=== PATIENT | female | born 1985 | race Caucasian/White ===

== ENCOUNTER → 2016-07-19 | Outpatient (CLI) | payer OTHER ==
[2016-07-19 12:44] LABS: CH 30.2; CHCM 33.4; HCT 40.9 % (34.0-46.0); HDW 2.24; HGB 13.4 gm/dL (11.4-16.0); MCH 29.6 pg (25.0-35.0); MCHC 32.7 g/dL (31.0-37.0); MCV 90.6 fL (80.0-100.0); Mean Platelet Volume 7.2; RBC 4.51 m/uL (3.80-5.40); RDW 12.6 % (11.5-15.5)
[2016-07-19 13:04] LABS: Glucose 89 mg/dL (74-99); Non-African American GFR(MDRD) >60 (>60 ml/min/1.73 sqM)
[2016-07-19 13:35] LABS: Hepatitis B Surface Ag Index 0.05
--- NOTE | 2016-07-19 13:52 | US ---
EXAMINATION TYPE: US OB <= 14 wk fetus DATE OF EXAM: 07/19/2016 11:38 AM COMPARISON: NONE CLINICAL HISTORY: Z36 Confirm dates. EXAM PERFORMED: <14 week OB EXAM MEASUREMENTS: GESTATIONAL AGE / DATING Physician Established: (10 weeks/2 days) EDC: 02/12/2017 Dates by LMP: (10 weeks/2 days) EDC: 02/12/2017 Dates by First Scan: No Previous Dates by Current Scan for: (10 weeks/1 days) EDC: 02/13/2017 MATERNAL ANATOMY Uterus: 11.2 x 10.2 x 9.6 cm Right Ovary: 2.9 x 2.5 x 2.0 cm Left Ovary: 2.8 x 2.7 x 1.7 cm Post CDS / Adnexa: wnl Presence of free fluid: no Presence of corpus luteal cyst: no Presence of subchorionic bleed: yes, to right side = 1.3 x 1.1 x 1.0 cm GESTATION / SURVEY CRL: 2.8 cm (9 weeks/4 days) MSD: 4.7 cm (10 weeks/4 days) Yolk Sac (normal less than 6mm): 0.4 cm Heart Rate: 170 bpm Rhythm: normal IUP: yes Date of LMP: 05/08/2016 TECHNOLOGIST IMPRESSION: IMPRESSION: 1. Single intrauterine gestation estimated at 10 weeks 1 day gestation on the current ultrasound. Thi s would have an EDC of 02/13/2017. 2. Cardiac activity measures 170 bpm.
[2016-07-20 07:05] LABS: HIV-1/HIV-2 Ab Screen NONREAC (NON REAC)
== END | disposition home or self-care (01) ==
LOC: RADUSWWP 11:09
PROVIDERS: ATTEND Obstetrics & Gynecology
DX: Z36 Encounter for antenatal screening of mother (principal); O26.819 Pregnancy related exhaustion and fatigue, unspecified trimester; Z3A.10 10 weeks gestation of pregnancy
CPT/HCPCS: 76801; 82565; 82947; 85027; 86762; 86780; 86850; 86900; 86901; 87340; 87389

== ENCOUNTER → 2016-09-20 | Outpatient (CLI) | payer OTHER ==
--- NOTE | 2016-09-20 14:47 | US ---
EXAMINATION TYPE: US OB anatomy transabd DATE OF EXAM: 09/20/2016 1:14 PM COMPARISON: NONE HISTORY: Large [id number] Small for dates TECHNIQUE: OBTA EXAM MEASUREMENTS: GESTATIONAL AGE / DATING Physician Established: (19 weeks/2 days) EDC: 02/12/2017 Dates by LMP: (1 9 weeks/2 days) EDC: 02/12/2017 Dates by First Scan: (19 weeks/1 days) EDC: 02/13/2017 Dates by Current Scan for: (18 weeks/3 days) EDC: 02/18/2017 SURVEY IUP: Single PLACENTA: Posterior PREVIA: No previa TONIA: 16.1 cm Normal CERVICAL LENGTH (transabdominal: norm > 3.0cm): 3.2 cm BIOMETRY PRESENTATION: Variable BPD: 4.1 cm 18 weeks / 4 days HC: 15.0 cm 18 weeks / 1 days AC: 12.6 cm 18 weeks / 2 days FL: 2.8 cm 18 weeks / 4 days ESTIMATED WEIGHT IN GRAMS: 236 grams ESTIMATED WEIGHT IN LBS/OZS: 0 lbs. 8 oz. WEIGHT PERCENTAGE BASED ON ESTABLISHED DATE: 8 % HC/AC: 1.1 Normal FL/AC: 22 Normal HEART RATE: 152 bpm RHYTHM: Normal ANATOMY SEEN (within normal limits): * Lateral Vent (< 1 cm) 0.6 cm * Cisterna Magna (< 1.1 cm) 0.3 cm * Nuchal Fold (< 0.6 cm) 0.3 cm * Cerebellum (varies with age) 1.8 cm Choroid Plexus (bilateral) Midline Falx Cavus Septi Pellucidi Four Chamber Heart Outflow tracts: LVOT/RVOT Stomach Situs Nose / Lips Diaphragm Kidneys (bilateral) Bladder Cord Insert Three Vessel Cord Longitudinal Spine Transverse Spine Arms (bilateral) Legs (bilateral) Viable 18w3d fetus seen and appears wnl IMPRESSION: 1. Single intrauterine gestation estimated at 18 weeks 3 days gestation based on current ultrasound m easurements. This is cardiac activity measures 152 bpm.
== END | disposition home or self-care (01) ==
LOC: RADUSWWP 11:13
PROVIDERS: ATTEND Obstetrics & Gynecology
DX: O36.5920 Maternal care for other known or suspected poor fetal growth, second trimester, not applicable or unspecified (principal); Z3A.18 18 weeks gestation of pregnancy
CPT/HCPCS: 76811

== ENCOUNTER → 2016-11-02 | Outpatient (CLI) | payer OTHER ==
[2016-11-02 11:47] LABS: CH 30.5; CHCM 33.1; HCT 35.9 % (34.0-46.0); HDW 2.46; HGB 11.5 gm/dL (11.4-16.0); MCH 29.8 pg (25.0-35.0); MCHC 32.1 g/dL (31.0-37.0); MCV 92.7 fL (80.0-100.0); Mean Platelet Volume 6.8; RBC 3.87 m/uL (3.80-5.40); RDW 13.5 % (11.5-15.5)
== END | disposition home or self-care (01) ==
LOC: LABWHC1 10:25
PROVIDERS: ATTEND Obstetrics & Gynecology
DX: Z34.92 Encounter for supervision of normal pregnancy, unspecified, second trimester (principal); Z3A.00 Weeks of gestation of pregnancy not specified
CPT/HCPCS: 36415; 82950; 85027

== ENCOUNTER 2016-11-06 15:52 | Emergency (ER) | payer OTHER ==
[2016-11-06 16:00] VITALS: BP 133/81; PULSE 102; RESP 16; TEMP 98.3
--- NOTE | 2016-11-06 16:30 | ED ---
Recheck HPI - General Chief Complaint: Recheck/Abnormal Lab/Rx Stated Complaint: Cough Time Seen by Provider: 11/06/16 16:16 Source: patient, RN notes reviewed Mode of arrival: ambulatory Limitations: no limitations - History of Present Illness Initial Comments: 31-year-old female presents to the emergency Department chief complaint of concern for worms. Patient states that they got a puppy and the puppy is having worsening take stool. Patient stated that and they told her to go to the emergency room in the evaluated. Patient states she's not having a symptom she's not having anal itching. She did not notice any worms in her stool. Patient denies any recent fever, chills, shortness of breath, chest pain, back pain, abdominal pain, nausea vomiting, numbness or tingling, dysuria or hematuria, constipation or diarrhea, headaches or visual changes, or any other current symptoms. - Related Data Previous Rx's Medication Instructions Recorded Acetaminophen-Codeine 300-30mg 1 each PO Q4HR PRN #30 tab 11/14/15 [Tylenol w/codeine #3] Ibuprofen [Motrin] 600 mg PO Q6HR PRN #60 tab 11/14/15 Allergies Allergy/AdvReac Type Severity Reaction Status Date / Time morphine Allergy Rash/Hives Verified 11/06/16 15:59 Review of Systems ROS Statement: Those systems with pertinent positive or pertinent negative responses have been documented in the HPI. ROS Other: All systems not noted in ROS Statement are negative. Past Medical History Past Medical History: No Reported History Additional Past Medical History / Comment(s): History of vesicoureteral reflux with resulting kidney disease status post bilateral ureteral implants in the past. History of Any Multi-Drug Resistant Organisms: None Reported Past Surgical History: Tonsillectomy Additional Past Surgical History / Comment(s): Bilateral ureteral stents. uti Past Anesthesia/Blood Transfusion Reactions: No Reported Reaction Past Psychological History: Depression Additional Psychological History / Comment(s): hx of with meds in past but not ppd Smoking Status: Current every day smoker Past Alcohol Use History: None Reported Past Drug Use History: None Reported - Past Family History Father Family Medical History: No Reported History General Exam Limitations: no limitations General appearance: alert, in no apparent distress Head exam: Present: atraumatic, normocephalic, normal inspection Respiratory exam: Absent: respiratory distress Cardiovascular Exam: Present: regular rate Back exam: Present: normal inspection Neurological exam: Present: alert, oriented X3 Psychiatric exam: Present: normal affect, normal mood Skin exam: Present: warm, dry, intact, normal color. Absent: rash Course Vital Signs 11/06/16 15:55 Temperature 98.3 F Pulse Rate 102 H Respiratory 16 Rate Blood Pressure 133/81 O2 Sat by Pulse 97 Oximetry Medical Decision Making - Medical Decision Making 31-year-old female presents emergency department with a chief complaint of concern for possible exposure to lungs. This patient was offered a pinworm test that she states she does not have this. Patient states she is not getting the words she has not been doing anything abnormal about the arms. Patient states that she would just like to go home. She states she sees her doctor tomorrow and she will address this issue with him. The patient states that she understood and she is in agreement with the plan. She will be discharged home. Disposition Clinical Impression: Concern about digestive disease without diagnosis Disposition: HOME SELF-CARE Condition: Stable Instructions: Acute Diarrhea in Children (ED) Additional Instructions: Please follow up with family doctor if symptoms have not improved over the next two days. Please return to the emergency room if your symptoms increase or worsen or for any other concerns. Referrals: Earlene Hobson MD [STAFF PHYSICIAN] - 1-2 days Time of Disposition: 16:30
== END 2016-11-06 17:00 | disposition home or self-care (01) ==
LOC: EC 15:52
DX: R05 Cough (principal); F17.200 Nicotine dependence, unspecified, uncomplicated; Z88.5 Allergy status to narcotic agent
CPT/HCPCS: 99282

== ENCOUNTER 2016-11-22 15:39 | Outpatient (CLI) | payer OTHER ==
[2016-11-22 16:02] LABS: Appearance,Urine Cloudy (Clear); Bacteria,Urine Occasional /hpf; Bilirubin,Urine Negative (Negative); Glucose,Urine (UA) Negative (Negative); Ketones,Urine Negative (Negative); Leukocyte Esterase,Urine Large (Negative); Mucus,Urine Occasional /hpf; Nitrite,Urine Positive (Negative); PH, Urine 6.5 (5.0-8.0); Particle Count 51647; Protein,Urine Trace (Negative); RBC,Urine 1 /hpf (0-5); Squamous Epithelial Cell,Urine 5 /hpf (0-4); UA Billing (MACRO vs. MICRO) MICRO; Urobilinogen,Urine <2.0 mg/dL (<2.0); WBC,Urine 33 /hpf (0-5)
[2016-11-22] MEDS ORDERED: ceFAZolin 2 GM in SODIUM CHLORIDE 0.9% 100 ML IVPB STA (16:25)
[2016-11-22] MEDS ORDERED: BETAMET ACET-BETAMETH SOD PHOS 6 MG/ML VIAL IM SCH (16:30)
[2016-11-22] MEDS ORDERED: LACTATED RINGERS 1,000 ML IV SCH (16:30)
[2016-11-22 16:52] LABS: Basophils # (A) 0.1 k/uL (0-0.2); Basophils % (A) 0 %; CH 30.5; CHCM 34.4; Eosinophils # (A) 0.2 k/uL (0-0.7); Eosinophils % (A) 1 %; HCT 34.8 % (34.0-46.0); HDW 2.63; HGB 12.1 gm/dL (11.4-16.0); Luc # (Auto) 0.23; Luc % (Auto) 1; Lymphocytes # (A) 2.3 k/uL (1.0-4.8); Lymphocytes % (A) 12 %; MCH 31.1 pg (25.0-35.0); MCHC 34.9 g/dL (31.0-37.0); MCV 89.3 fL (80.0-100.0); Mean Platelet Volume 7.3; Monocytes # (A) 0.6 k/uL (0-1.0); Monocytes % (A) 3 %; Neutrophils # (A) 15.8 k/uL (1.3-7.7); Neutrophils % (A) 82 %; RDW 13.6 % (11.5-15.5); WBC 19.3 k/uL (3.8-10.6); WBC (Perox) 20.41
[2016-11-22] MEDS ORDERED: CALCIUM GLUCONATE 100 MG/ML 10 ML VIAL IV ONE (17:21)
[2016-11-22] MEDS ORDERED: MAGNESIUM SULFATE-WATER PMX 4 GM in WATER FOR INJECTION 50 50ML.BAG IVPB ONE (17:21)
[2016-11-22] MEDS ORDERED: MAGNESIUM SULFATE-WATER PMX 20 GM in WATER FOR INJECTION 1 500ML.BAG IV SCH (17:30)
--- NOTE | 2016-11-22 17:31 | P.HPOB ---
History of Present Illness H&P Date: 11/22/16 Chief Complaint: Left lower back pain This is a 31-year-old female 5 para 4 with an estimated date of confinement of 02/12/2017, estimated gestational age of 28-2/7 weeks, who presented to labor and delivery triage complaining of left pain that worsened today. She has been feeling back pain off and on for quite some time now but it did get stronger today. She does have a history of kidney problems and therefore was concerned that she might have a bladder infection. Her has been with Dr. Pickett and has been uncomplicated up until this point. All of her lab tests have been normal. In triage she was noted to have some contractions on the monitor even though she was not feeling contractions. She was checked and found to be 3-1/2 cm by nursing staff shortly after arrival. The patient states her 1 child was born at 37 weeks and she was feeling the same kind of back pain at that time and was not feeling strong contractions arrived to 8 cm. Review of Systems Constitutional: Denies chills, Denies fever Cardiovascular: Denies chest pain, Denies shortness of breath Respiratory: Denies cough Gastrointestinal: Denies abdominal pain Genitourinary: Reports , Denies urgency Musculoskeletal: Reports low back pain Psychiatric: Reports anxiety, Reports depression Past Medical History Past Medical History: No Reported History Additional Past Medical History / Comment(s): History of vesicoureteral reflux with resulting kidney disease status post bilateral ureteral implants in the past. History of Any Multi-Drug Resistant Organisms: None Reported Past Surgical History: Tonsillectomy Additional Past Surgical History / Comment(s): Bilateral ureteral stents. uti Past Anesthesia/Blood Transfusion Reactions: No Reported Reaction Past Psychological History: Depression Additional Psychological History / Comment(s): hx of with meds in past but not ppd Smoking Status: Current every day smoker Past Alcohol Use History: None Reported Past Drug Use History: None Reported - Past Family History Father Family Medical History: No Reported History Medications and Allergies Home Medications Medication Instructions Recorded Confirmed Type Acetaminophen Tab [Tylenol Tab] 1,000 mg PO Q6HR PRN 11/06/16 11/22/16 History Allergies Allergy/AdvReac Type Severity Reaction Status Date / Time morphine Allergy Rash/Hives Verified 11/22/16 15:50 Exam Osteopathic Statement: *. No significant issues noted on an osteopathic structural exam other than those noted in the History and Physical/Consult. - Vital Signs Vital signs: Intake and Output 11/22/16 11/22/16 11/22/16 06:59 14:59 22:59 Other: Weight 65.771 kg Patient Weight 11/23/16 06:59 Weight 65.771 kg HEENT: Within normal limits Heart: Regular rate and rhythm Lungs: Clear to auscultation bilaterally Abdomen: Soft, nontender Back: Mild tenderness along her left sacroiliac joint Extremities: Negative Homans Cervix exam 3-1/2 cm/60%/ballotable, no presenting part palpable heart tones: Normal variability with accelerations and no decelerations Contractions: Every 2-7 minutes, irregular Results Result Diagrams: 11/22/16 16:37 Abnormal Lab Results - Last 24 Hours (Table) 11/22/16 11/22/16 Range/Units 15:50 16:37 WBC 19.3 H (3.8-10.6) k/uL Neutrophils # 15.8 H (1.3-7.7) k/uL Urine Appearance Cloudy H (Clear) Urine Protein Trace H (Negative) Urine Blood Trace H (Negative) Urine Nitrite Positive H (Negative) Ur Leukocyte Esterase Large H (Negative) Urine WBC 33 H (0-5) /hpf Ur Squamous Epith Cells 5 H (0-4) /hpf Urine Bacteria Occasional H (None) /hpf Urine Mucus Occasional H (None) /hpf Assessment and Plan (1) 28 weeks gestation of Status: Acute (2) labor Status: Acute (3) Urinary tract infection Status: Acute Plan: Spoke with Dr. Canales at [facility] who accepted transfer. Will start magnesium sulfate tocolysis for transfer. She has received 1 dose of Celestone here and IV Kefzol for her urinary tract infection. Patient and her mother are advised of the recommendations and agreed to transfer. She will be transferred by ambulance.
[2016-11-22 18:38] VITALS: BP 116/59; PULSE 86; RESP 17; TEMP 96.9
== END 2016-11-22 18:00 | disposition home or self-care (01) ==
LOC: FBPOP 15:39
PROVIDERS: ATTEND Obstetrics & Gynecology
DX: O60.03 Preterm labor without delivery, third trimester (principal); O23.43 Unspecified infection of urinary tract in pregnancy, third trimester; Z3A.28 28 weeks gestation of pregnancy
CPT/HCPCS: 59025; 96361; 96365; 85025; 81001; G0463; J0702; J3475 ×2; J0690; 51702; 99215

== ENCOUNTER 2019-12-19 09:06 | Emergency (ER) | payer BC, OTHER ==
[2019-12-19 09:14] VITALS: TEMP 98.1
--- NOTE | 2019-12-19 09:26 | ED ---
General Adult HPI - General Chief complaint: Abdominal Pain Stated complaint: Pelvic pain Time Seen by Provider: 12/19/19 09:15 Source: patient Mode of arrival: ambulatory Limitations: no limitations - History of Present Illness Initial comments: Dictation was produced using [employer] dictation software. please excuse any grammatical, word or spelling errors. This patient was cared for during a federal and state declared state of emergency secondary to Covid 19 Chief Complaint: 34-year-old female with renal dysfunction, frequent UTIs presents with pelvic pain. History of Present Illness: Patient's 34-year-old female. 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 Patient's history of multiple UTIs. States that she has suprapubic pain that spent ongoing for proximally 7 days. She does have urinary hesitancy. She denies any chance of having a sexually transmitted disease. Denies any fever, chills or night sweats. States the pain is midline. She also does report having history of ovarian cysts. States that the pain has been progressive. Denies any vaginal discharge vaginal bleeding. She denies being because her had a vasectomy. She is sexually active with only one partner. The ROS documented in this emergency department record has been reviewed and confirmed by me. Those systems with pertinent positive or negative responses have been documented in the HPI. All other systems are other negative and/or noncontributory. PHYSICAL EXAM: General Impression: Alert and oriented x3, not in acute distress HEENT: Normocephalic atraumatic, extra-ocular movements intact, pupils equal and reactive to light bilaterally, mucous membranes moist. Cardiovascular: Heart regular rate and rhythm Chest: Able to complete full sentences, no retractions, no tachypnea Abdomen: abdomen soft, mild tenderness to the bilateral suprapubic regions Musculoskeletal: Pulses present and equal in all extremities, no peripheral edema, no CVA tenderness Motor: no focal deficits noted Neurological: CN II-XII grossly intact, no focal motor or sensory deficits noted Skin: Intact with no visualized rashes Psych: Normal affect and mood ED course: 34 y Old female presents with suprapubic pain and urinary symptoms. All signs upon arrival are within acceptable limits. Laboratory evaluation obtained. CBC, metabolic panel is unremarkable. Urina lysis does not suggest urinary tract infection. Patient well-appearing at bedside. Patient offered pelvic exam however refuse. No further tests or studies indicated at this time. Patient requested workup noted to have today and tomorrow off. Patient given a work note. 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 - Related Data Home Medications Medication Instructions Recorded Confirmed No Known Home Medications 12/19/19 12/19/19 Allergies Allergy/AdvReac Type Severity Reaction Status Date / Time morphine Allergy Rash/Hives Verified 12/19/19 10:15 Review of Systems ROS Statement: Those systems with pertinent positive or pertinent negative responses have been documented in the HPI. ROS Other: All systems not noted in ROS Statement are negative. Past Medical History Past Medical History: No Reported History Additional Past Medical History / Comment(s): History of vesicoureteral reflux with resulting kidney disease status post bilateral ureteral implants in the past. History of Any Multi-Drug Resistant Organisms: None Reported Past Surgical History: Tonsillectomy Additional Past Surgical History / Comment(s): Bilateral ureteral stents. uti Past Anesthesia/Blood Transfusion Reactions: No Reported Reaction Past Psychological History: No Psychological Hx Reported, Depression Smoking Status: Current every day smoker Past Alcohol Use History: None Reported Past Drug Use History: Marijuana - Past Family History Father Family Medical History: No Reported History General Exam Limitations: no limitations Course Vital Signs 12/19/19 12/19/19 09:10 09:42 Temperature 98.1 F 98.1 F Pulse Rate 93 82 Respiratory 18 16 Rate Blood Pressure 144/81 134/97 O2 Sat by Pulse 99 100 Oximetry Medical Decision Making - Lab Data Result diagrams: 12/19/19 09:37 12/19/19 09:37 Lab Results 12/19/19 12/19/19 12/19/19 Range/Units 09:37 09:37 09:37 WBC 9.5 (3.8-10.6) k/uL RBC 4.74 (3.80-5.40) m/uL Hgb 13.9 (11.4-16.0) gm/dL Hct 43.6 (34.0-46.0) % MCV 91.9 (80.0-100.0) fL MCH 29.2 (25.0-35.0) pg MCHC 31.8 (31.0-37.0) g/dL RDW 12.7 (11.5-15.5) % Plt Count 319 (150-450) k/uL Neutrophils % 65 % Lymphocytes % 26 % Monocytes % 5 % Eosinophils % 3 % Basophils % 1 % Neutrophils # 6.2 (1.3-7.7) k/uL Lymphocytes # 2.4 (1.0-4.8) k/uL Monocytes # 0.4 (0-1.0) k/uL Eosinophils # 0.3 (0-0.7) k/uL Basophils # 0.1 (0-0.2) k/uL Sodium (137-145) mmol/L Potassium (3.5-5.1) mmol/L Chloride (98-107) mmol/L Carbon Dioxide (22-30) mmol/L Anion Gap mmol/L BUN (7-17) mg/dL Creatinine (0.52-1.04) mg/dL Est GFR (CKD-EPI)AfAm (>60 ml/min/1.73 sqM) Est GFR (CKD-EPI)NonAf (>60 ml/min/1.73 sqM) Glucose (74-99) mg/dL Calcium (8.4-10.2) mg/dL Urine Color Yellow Urine Appearance Cloudy H (Clear) Urine pH 6.0 (5.0-8.0) Ur Specific [place] 1.026 (1.001-1.035) Urine Protein Trace H (Negative) Urine Glucose (UA) Negative (Negative) Urine Ketones Negative (Negative) Urine Blood Negative (Negative) Urine Nitrite Negative (Negative) Urine Bilirubin Negative (Negative) Urine Urobilinogen <2.0 (<2.0) mg/dL Ur Leukocyte Esterase Negative (Negative) Urine RBC 1 (0-5) /hpf Urine WBC 3 (0-5) /hpf Ur Squamous Epith Cells 9 H (0-4) /hpf Urine Bacteria Rare H (None) /hpf Hyaline Casts 3 H (0-2) /lpf Urine Mucus Many H (None) /hpf Urine HCG, Qual Not Detected (Not Detectd) 12/19/19 Range/Units 09:37 WBC (3.8-10.6) k/uL RBC (3.80-5.40) m/uL Hgb (11.4-16.0) gm/dL Hct (34.0-46.0) % MCV (80.0-100.0) fL MCH (25.0-35.0) pg MCHC (31.0-37.0) g/dL RDW (11.5-15.5) % Plt Count (150-450) k/uL Neutrophils % % Lymphocytes % % Monocytes % % Eosinophils % % Basophils % % Neutrophils # (1.3-7.7) k/uL Lymphocytes # (1.0-4.8) k/uL Monocytes # (0-1.0) k/uL Eosinophils # (0-0.7) k/uL Basophils # (0-0.2) k/uL Sodium 139 (137-145) mmol/L Potassium 4.4 (3.5-5.1) mmol/L Chloride 108 H (98-107) mmol/L Carbon Dioxide 23 (22-30) mmol/L Anion Gap 8 mmol/L BUN 14 (7-17) mg/dL Creatinine 0.59 (0.52-1.04) mg/dL Est GFR (CKD-EPI)AfAm >90 (>60 ml/min/1.73 sqM) Est GFR (CKD-EPI)NonAf >90 (>60 ml/min/1.73 sqM) Glucose 93 (74-99) mg/dL Calcium 9.6 (8.4-10.2) mg/dL Urine Color Urine Appearance (Clear) Urine pH (5.0-8.0) Ur Specific [place] (1.001-1.035) Urine Protein (Negative) Urine Glucose (UA) (Negative) Urine Ketones (Negative) Urine Blood (Negative) Urine Nitrite (Negative) Urine Bilirubin (Negative) Urine Urobilinogen (<2.0) mg/dL Ur Leukocyte Esterase (Negative) Urine RBC (0-5) /hpf Urine WBC (0-5) /hpf Ur Squamous Epith Cells (0-4) /hpf Urine Bacteria (None) /hpf Hyaline Casts (0-2) /lpf Urine Mucus (None) /hpf Urine HCG, Qual (Not Detectd) Disposition Clinical Impression: Pelvic pain Disposition: HOME SELF-CARE Condition: Good Instructions (If sedation given, give patient instructions): Pelvic Pain in Women (ED) Is patient prescribed a controlled substance at d/c from ED?: No Referrals: None,Stated [Primary Care Provider] - 1-2 days Time of Disposition: 10:16
[2019-12-19 09:45] VITALS: BP 134/97; PULSE 82; RESP 16
[2019-12-19 09:49] LABS: Basophils # (A) 0.1 k/uL (0-0.2); Basophils % (A) 1 %; Eosinophils # (A) 0.3 k/uL (0-0.7); Eosinophils % (A) 3 %; HCT 43.6 % (34.0-46.0); HGB 13.9 gm/dL (11.4-16.0); Lymphocytes # (A) 2.4 k/uL (1.0-4.8); Lymphocytes % (A) 26 %; MCH 29.2 pg (25.0-35.0); MCHC 31.8 g/dL (31.0-37.0); MCV 91.9 fL (80.0-100.0); Mean Platelet Volume 7.1; Monocytes # (A) 0.4 k/uL (0-1.0); Monocytes % (A) 5 %; Neutrophils # (A) 6.2 k/uL (1.3-7.7); Neutrophils % (A) 65 %; Platelet Count 319 k/uL (150-450); RBC 4.74 m/uL (3.80-5.40); RDW 12.7 % (11.5-15.5); WBC 9.5 k/uL (3.8-10.6)
[2019-12-19 09:53] LABS: Appearance,Urine Cloudy (Clear); Bacteria,Urine Rare /hpf; Bilirubin,Urine Negative (Negative); Blood,Urine Negative (Negative); Color,Urine Yellow; Glucose,Urine (UA) Negative (Negative); Hyaline Casts,Urine 3 /lpf (0-2); Ketones,Urine Negative (Negative); Leukocyte Esterase,Urine Negative (Negative); Mucus,Urine Many /hpf; Nitrite,Urine Negative (Negative); Protein,Urine Trace (Negative); RBC,Urine 1 /hpf (0-5); Specific Gravity,Urine 1.026 (1.001-1.035); Squamous Epithelial Cell,Urine 9 /hpf (0-4); Urobilinogen,Urine <2.0 mg/dL (<2.0); WBC,Urine 3 /hpf (0-5)
[2019-12-19 09:59] LABS: African American GFR (CKD) >90 (>60 ml/min/1.73 sqM); Anion Gap 8 mmol/L; Blood Urea Nitrogen 14 mg/dL (7-17); Calcium 9.6 mg/dL (8.4-10.2); Carbon Dioxide 23 mmol/L (22-30); Chloride 108 mmol/L (98-107); Glucose 93 mg/dL (74-99); Non-African American GFR(CKD) >90 (>60 ml/min/1.73 sqM); Potassium 4.4 mmol/L (3.5-5.1); Sodium 139 mmol/L (137-145)
[2019-12-19] MEDS ORDERED: ACET/COD 300 MG/30 MG STARTER PACK 6 TAB BTL PO STA (10:16)
== END 2019-12-19 10:35 | disposition home or self-care (01) ==
LOC: EC 09:06
DX: R10.2 Pelvic and perineal pain (principal); R39.11 Hesitancy of micturition; F17.200 Nicotine dependence, unspecified, uncomplicated; Z88.5 Allergy status to narcotic agent; Z87.440 Personal history of urinary (tract) infections
CPT/HCPCS: 36415; 80048; 81001; 81025; 85025; 99284

== ENCOUNTER 2025-01-17 00:25 | Emergency (ER) | payer BC, OTHER ==
[2025-01-17 00:33] VITALS: TEMP 97.7
--- NOTE | 2025-01-17 01:10 | ED ---
Recheck HPI - General Chief Complaint: Recheck/Abnormal Lab/Rx Stated Complaint: Staph Infection Time Seen by Provider: 01/17/25 00:45 Source: patient, RN notes reviewed Mode of arrival: ambulatory Limitations: no limitations - History of Present Illness Initial Comments: 39-year-old female presenting to the ER for evaluation of nose and scalp sores. Patient notes she has 4 infected teeth on her lower jaw and she does not frequently brush her teeth or see a dentist. She states she believes they may be infected as she is noting discomfort to her tongue which occasionally happens when they are infected. Patient does state she has "orange little balls" that come from her tongue. She is not currently on any antibiotics. She has been ri nsing her mouth with warm salt water daily. Patient also notes sores to the inside of her nose and posterior scalp. She states they are tender and do have drainage at times. Patient has not taken anything for current symptoms she denies any fevers or chills. She denies any mouth, tongue, oropharynx swelling. No difficulty breathing or wheezing. - Related Data Previous Rx's Medication Instructions Recorded Amoxic-Pot Clav 875-125Mg 1 tab PO BID 10 Days #20 tab 01/17/25 [Augmentin 875-125] Allergies Allergy/AdvReac Type Severity Reaction Status Date / Time morphine Allergy Rash/Hives Verified 01/17/25 00:27 Review of Systems ROS Statement: Those systems with pertinent positive or pertinent negative responses have been documented in the HPI. ROS Other: All systems not noted in ROS Statement are negative. Past Medical History Past Medical History: No Reported History Additional Past Medical History / Comment(s): History of vesicoureteral reflux with resulting kidney disease status post bilateral ureteral implants in the past. History of Any Multi-Drug Resistant Organisms: None Reported Past Surgical History: Tonsillectomy Additional Past Surgical History / Comment(s): Bilateral ureteral stents. uti Past Anesthesia/Blood Transfusion Reactions: No Reported Reaction Past Psychological History: No Psychological Hx Reported, Depression Smoking Status: Never smoker Past Alcohol Use History: None Reported Past Drug Use History: Marijuana - Past Family History Father Family Medical History: No Reported History General Exam Limitations: no limitations General appearance: alert, in no apparent distress ENT exam: Present: normal oropharynx (No tongue, lip or oropharynx edema. No floor mouth or neck induration or swelling.), mucous membranes moist, other (Lower jaw 4 incisors noted. There is plaque noted to base with erythema to gumline. Other teeth absent. There is no gum breakdown, erythema or drainable abscess noted. Top dentures noted. No gum irritation or drainable abscess noted upon removal. Scab left nasal septum) Neck exam: Present: normal inspection. Absent: tenderness, meningismus, lymphadenopathy Respiratory exam: Present: normal lung sounds bilaterally. Absent: respiratory distress, wheezes, rales, rhonchi, stridor Cardiovascular Exam: Present: regular rate, normal rhythm, normal heart sounds. Absent: systolic murmur, diastolic murmur, rubs, gallop, clicks Extremities exam: Present: normal inspection, full ROM, normal capillary refill. Absent: tenderness, pedal edema, joint swelling, calf tenderness Neurological exam: Present: alert, oriented X3, CN II-XII intact Skin exam: Present: warm, dry, intact, normal color, other (3 erythematous scabs left posterior scalp. No purulent drainage, fluctuance). Absent: rash Course Vital Signs 01/17/25 01/17/25 00:28 01:22 Temperature 97.7 F 97.7 F Pulse Rate 93 74 Respiratory 18 16 Rate Blood Pressure 124/89 137/98 O2 Sat by Pulse 100 100 Oximetry Medical Decision Making - Medical Decision Making Was pt. sent in by a medical professional or institution ([facility] [facility], [employer], urgent care, hospital, or [place] [facility] facility...) When possible be specific @ -No Did you speak to anyone other than the patient for history (EMS, parent, family, police, friend...)? What history was obtained from this source @ -No Did you review nursing and triage notes (agree or disagree)? Why? @ -I reviewed and agree with nursing and triage notes Were old charts reviewed (outside hosp., previous admission, EMS record, old EKG, old radiological studies, urgent care reports/EKG's, [place] [facility] facility records)? Report findings @ -No old charts were reviewed Differential Diagnosis (chest pain, altered mental status, abdominal pain women, abdominal pain men, vaginal bleeding, weakness, fever, dyspnea, syncope, headache, dizziness, GI bleed, back pain, seizure, CVA, palpatations, mental health, musculoskeletal)? @ -Dental infection, Garth angina, allergic reaction, cellulitis, impetigo, scabies... This list is not meant to be all-inclusive EKG interpreted by me (3pts min.). @ -[None done X-rays interpreted by me (1pt min.). @ -None done CT interpreted by me (1pt min.). @ -None done U/S interpreted by me (1pt. min.). @ -None done What testing was considered but not performed or refused? (CT, X-rays, U/S, labs)? Why? @ -None What meds were considered but not given or refused? Why? @ -None Did you discuss the management of the patient with other professionals (professionals i.e. , PA, [employer], lab, RT, psych nurse, renal social worker, medicaid specialist, teacher, corporate development officer, medical case manager)? Give summary @ -No Was smoking cessation discussed for >3mins.? @ -No Was critical care preformed (if so, how long)? @ -No Were there social determinants of health that impacted care today? How? (Homelessness, low income, unemployed, alcoholism, drug addiction, transportation, low edu. Level, literacy, decrease access to med. care, nursing home, rehab)? @ -No Was there de-escalation of care discussed even if they declined (Discuss DNR or withdrawal of care, Hospice)? DNR status @ -No What co-morbidities impacted this encounter? (DM, HTN, Smoking, COPD, CAD, Cancer, CVA, ARF, Chemo, Hep., AIDS, mental health diagnosis, sleep apnea, morbid obesity)? @ -None Was patient admitted / discharged? Hospital course, mention meds given and route, prescriptions, significant lab abnormalities, going to OR and other pertinent info. @ -Discharge. 39-year-old female presenting to the ER for evaluation for nose and scalp sores. Vital signs stable. There are scabs noted to left posterior scalp and left nasal septum. No evidence of infection. Examination of oral mucosa without drainable abscess. Therefore lower incisor teeth noted with plaque and erythema to gumline. No floor mouth, tongue, lip or uvula edema. Patient supporting her airway. Patient will be started on Augmentin for dental infection prophylaxis, first dose in ER. I advised her to follow-up closely with a dentist and had a lengthy discussion regarding proper dental hygiene. I also advised patient to avoid picking at skin as scabs appear to be consistent with this. Strict return parameters discussed. Patient discharged stable condition advised follow-up with the dentist, referral given. Patient verbally expressed understanding agree with care plan. Case discussed with ED attending with Dr. Pratt Undiagnosed new problem with uncertain prognosis? @ -No Drug Therapy requiring intensive monitoring for toxicity (Heparin, Nitro, Insulin, Cardizem)? @ -No Were any procedures done? @ -No Diagnosis/symptom? @ -Dental infection/dental pain/rash Acute, or Chronic, or Acute on Chronic? @ -Acute Uncomplicated (without systemic symptoms) or Complicated (systemic symptoms)? @ -Uncomplicated Side effects of treatment? @ -No Exacerbation, Progression, or Severe Exacerbation? @ -No Poses a threat to life or bodily function? How? (Chest pain, [place], [place], pneumonia, PE, COPD, DKA, ARF, appy, cholecystitis, CVA, Diverticulitis, Homicidal, Suicidal, threat to staff... and all critical care pts) @ -No Disposition Clinical Impression: Pain, dental Disposition: HOME SELF-CARE Condition: Stable Instructions (If sedation given, give patient instructions): Mouth Care (ED) Additional Instructions: Follow-up with dentist. I highly recommend you refrain from picking at skin. Take antibiotics as prescribed. Return to the ER for any new or worsening concerns. Prescriptions: Amoxic-Pot Clav 875-125Mg [Augmentin 875-125] 1 tab PO BID 10 Days #20 tab Is patient prescribed a controlled substance at d/c from ED?: No Referrals: None,Stated [Primary Care Provider] - 1-2 days Kennedi Carlisle DDS [STAFF PHYSICIAN] - 1-2 days Rufino Tucker DDS [STAFF PHYSICIAN] - 1-2 days Forms: PH Area PCPs Time of Disposition: 01:10
[2025-01-17] MEDS: AMOXIC-POT CLAV 875-125MG 1 EACH TAB PO STA (01:15)
[2025-01-17 01:36] VITALS: BP 137/98; PULSE 74; RESP 16
== END 2025-01-17 01:22 | disposition home or self-care (01) ==
LOC: EC 00:25
DX: K08.89 Other specified disorders of teeth and supporting structures (principal); Z88.5 Allergy status to narcotic agent
CPT/HCPCS: 99283